=== PATIENT | female | born 1965 | race Caucasian/White ===

== ENCOUNTER 2017-10-05 21:07 | Emergency (ER) | payer SELFPAY ==
[~2017-10-05] VITALS: Ht 162.6 cm; Wt 74.4 kg
[~2017-10-05 21:07] MED LIST: CYCL10TA45 PO; HYDR-3714 PO; ONDA8TAB13 PO; OXYC1TAB25 PO
[2017-10-05 21:41] LABS: BASOPHILS % (AUTO) 1 % (0-10); EOSINOPHILS # (AUTO) 0.1 10^3/uL (0.0-0.3); EOSINOPHILS % (AUTO) 2 % (0-10); HEMATOCRIT 41 % (35-52); HEMOGLOBIN 14.3 G/DL (11.5-16.0); LYMPHOCYTES # (AUTO) 2.6 X 10^3 (1.0-4.0); LYMPHOCYTES % (AUTO) 34 % (12-44); MEAN CORPUSCULAR HEMOGLOBIN 32 PG (25-34); MEAN CORPUSCULAR HGB CONC 35 G/DL (32-36); MEAN CORPUSCULAR VOLUME 90 FL (80-99); MEAN PLATELET VOLUME 9.7 FL (7.4-10.4); MONOCYTES # (AUTO) 0.4 X 10^3 (0.0-1.0); MONOCYTES % (AUTO) 6 % (0-12); NEUTROPHILS # (AUTO) 4.4 X 10^3 (1.8-7.8); NEUTROPHILS % (AUTO) 59 % (42-75); PLATELET COUNT 288 10^3/uL (130-400); WHITE BLOOD COUNT 7.6 10^3/uL (4.3-11.0)
[2017-10-05] MEDS ORDERED: ASPIRIN 81 MG CHEW (CHILDREN'S ASA) PO ONE (21:45)
[2017-10-05 21:55] LABS: INR 0.9 (0.8-1.4); PROTHROMBIN TIME PATIENT 12.5 SEC (12.2-14.7)
[2017-10-05 21:56] LABS: ALANINE AMINOTRANSFERASE 15 U/L (0-55); ALBUMIN 4.1 GM/DL (3.2-4.5); ALKALINE PHOSPHATASE 112 U/L (40-136); BILIRUBIN,TOTAL 0.4 MG/DL (0.1-1.0); BUN/CREATININE RATIO 11; CALCIUM 9.7 MG/DL (8.5-10.1); CARBON DIOXIDE 21 MMOL/L (21-32); CHLORIDE 108 MMOL/L (98-107); CREATININE SERUM 0.72 MG/DL (0.60-1.30); GFR ESTIMATED > 60; GLUCOSE 118 MG/DL (70-105); MAGNESIUM 2.4 MG/DL (1.8-2.4); POTASSIUM 3.6 MMOL/L (3.6-5.0); SODIUM 141 MMOL/L (135-145); TOTAL PROTEIN 7.2 GM/DL (6.4-8.2)
--- NOTE | 2017-10-05 22:01 | Diagnostic Imaging Report ---
PA and lateral chest are compared to prior study from August 18, 2013. INDICATION: Shortness of breath. FINDINGS: There is flattening of the diaphragms compatible with air trapping and probable underlying COPD. There is no new infiltrate or effusion demonstrated. There is no pneumothorax. Heart size appears appropriate without evidence of failure. There is no acute or suspicious osseous abnormality. IMPRESSION: 1. Pulmonary hyperinflation suggests air trapping and underlying features of COPD. No new acute superimposed cardiopulmonary process evident. Dictated by: Dictated on workstation # [id number]
[2017-10-05 22:05] LABS: MYOGLOBIN SERUM 14.5 NG/ML (10.0-92.0)
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
[2017-10-05] MEDS ORDERED: RT-ALBUTEROL/IPRATROPIUM 3 ML (DUONEB) VIAL INH ONE (22:15)
[2017-10-05 22:17] LABS: FREE T4 (FREE THYROXINE) 0.89 NG/DL (0.70-1.48)
[2017-10-05] MEDS ORDERED: FLUT9.9S NSEACH (22:52)
[2017-10-05] MEDS ORDERED: AZIT250T12 PO (22:52)
[2017-10-05] MEDS ORDERED: RT-ALBUINH IH (22:52)
[2017-10-05 22:59] VITALS: BP 132/69
== END 2017-10-05 22:59 | disposition home or self-care (01) ==
LOC: EDUNIT# 21:07 → ER 21:10
DX: J44.1 Chronic obstructive pulmonary disease with (acute) exacerbation (principal); J32.8 Other chronic sinusitis; F17.210 Nicotine dependence, cigarettes, uncomplicated; Z79.51 Long term (current) use of inhaled steroids; Z87.81 Personal history of (healed) traumatic fracture; Z87.828 Personal history of other (healed) physical injury and trauma; Z98.890 Other specified postprocedural states; Z88.0 Allergy status to penicillin
CPT/HCPCS: 36415; 71046; 80053; 83735; 83874; 84439; 84443; 84484; 85025; 85610; 85730; 93005; 93041; 94640

== ENCOUNTER 2018-07-29 13:06 | Emergency (ER) | payer MEDICARE ==
[~2018-07-29] VITALS: Ht 162.6 cm; Wt 72.6 kg
[~2018-07-29 13:06] MED LIST changes: +AZIT250T12 PO; +FLUT9.9S NSEACH; +RT-ALBUINH IH
[2018-07-29] MEDS ORDERED: KETOROLAC 30 MG/ML VIAL IVP STA (14:12)
[2018-07-29 14:22] LABS: BILIRUBIN,URINE NEGATIVE (NEGATIVE); CLARITY,URINE SLIGHTLY CLOUDY; COLOR,URINE YELLOW; GLUCOSE, URINE (UA) NEGATIVE (NEGATIVE); KETONES,URINE NEGATIVE (NEGATIVE); LEUKOCYTE ESTERASE ,URINE NEGATIVE (NEGATIVE); NITRITE,URINE NEGATIVE (NEGATIVE); PH,URINE 7 (5-9); PROTEIN,URINE NEGATIVE (NEGATIVE); UROBILINOGEN,URINE NORMAL (NORMAL)
[2018-07-29 14:37] LABS: BASOPHILS % (AUTO) 1 % (0-10); EOSINOPHILS # (AUTO) 0.4 10^3/uL (0.0-0.3); EOSINOPHILS % (AUTO) 6 % (0-10); HEMATOCRIT 45 % (35-52); LYMPHOCYTES # (AUTO) 1.9 X 10^3 (1.0-4.0); LYMPHOCYTES % (AUTO) 28 % (12-44); MEAN CORPUSCULAR HEMOGLOBIN 32 PG (25-34); MEAN CORPUSCULAR HGB CONC 36 G/DL (32-36); MEAN CORPUSCULAR VOLUME 90 FL (80-99); MEAN PLATELET VOLUME 11.9 FL (7.4-10.4); MONOCYTES # (AUTO) 0.4 X 10^3 (0.0-1.0); MONOCYTES % (AUTO) 6 % (0-12); NEUTROPHILS # (AUTO) 4.1 X 10^3 (1.8-7.8); NEUTROPHILS % (AUTO) 60 % (42-75); PLATELET COUNT 235 10^3/uL (130-400); RED CELL DISTRIBUTION WIDTH 14.9 % (10.0-14.5); WHITE BLOOD COUNT 6.9 10^3/uL (4.3-11.0)
[2018-07-29 14:42] LABS: BACTERIA,URINE NEGATIVE /HPF; SQUAMOUS EPITHELIAL CELL,UR 0-2 /HPF
[2018-07-29 14:43] LABS: AMPHETAMINE SCREEN, URINE NEGATIVE (NEGATIVE); BARBITURATE SCREEN URINE NEGATIVE (NEGATIVE); BENZODIAZEPINES SCREEN URINE NEGATIVE (NEGATIVE); CANNABINOID SCREEN, URINE NEGATIVE (NEGATIVE); COCAINE SCREEN URINE NEGATIVE (NEGATIVE); METHADONE STAT NEGATIVE (NEGATIVE); METHAMPHETAMINE SCREEN URINE S NEGATIVE (NEGATIVE); OPIATE SCREEN URINE NEGATIVE (NEGATIVE); OXYCODONE STAT NEGATIVE (NEGATIVE); PROPOXYPHENE STAT NEGATIVE (NEGATIVE); TRICYCLIC ANTIDEPRESSANTS SCRE NEGATIVE (NEGATIVE)
[2018-07-29] MEDS ORDERED: LEVOTHYROXINE 88 MCG (14:46)
[2018-07-29] MEDS ORDERED: GABAPENTIN CAP 300MG (14:46)
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
[2018-07-29] MEDS ORDERED: [UNRECOGNIZED DRUG - CODE] (14:51)
[2018-07-29 15:13] LABS: ALANINE AMINOTRANSFERASE 13 U/L (0-55); ALBUMIN 4.1 GM/DL (3.2-4.5); ALKALINE PHOSPHATASE 98 U/L (40-136); BILIRUBIN,TOTAL 0.4 MG/DL (0.1-1.0); BUN/CREATININE RATIO 11; CALCIUM 9.7 MG/DL (8.5-10.1); CARBON DIOXIDE 25 MMOL/L (21-32); CHLORIDE 106 MMOL/L (98-107); GFR ESTIMATED > 60; GLUCOSE 76 MG/DL (70-105); POTASSIUM 4.1 MMOL/L (3.6-5.0); SODIUM 139 MMOL/L (135-145); TOTAL PROTEIN 7.2 GM/DL (6.4-8.2)
[2018-07-29 15:33] LABS: FREE T4 (FREE THYROXINE) 0.66 NG/DL (0.70-1.48)
[2018-07-29] MEDS ORDERED: LEVOTHYROXINE 88 MCG (LEVOTHORID) TAB PO ONE (15:45)
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
[2018-07-29] MEDS ORDERED: CYCL10TA9 PO (16:53)
[2018-07-29 17:02] VITALS: BP 102/74
== END 2018-07-29 17:06 | disposition home or self-care (01) ==
LOC: EDUNIT# 13:06 → ER 13:08
DX: M54.6 Pain in thoracic spine (principal); E03.9 Hypothyroidism, unspecified; F17.210 Nicotine dependence, cigarettes, uncomplicated; Z98.890 Other specified postprocedural states; Z88.0 Allergy status to penicillin; Z88.6 Allergy status to analgesic agent
CPT/HCPCS: 36415; 70450; 70486; 72125; 72128; 72131; 80053; 80306; 81000; 84439; 84443; 85025; 86141

== ENCOUNTER 2018-08-27 17:50 | Emergency (ER) | payer MEDICARE ==
[~2018-08-27] VITALS: Ht 160 cm; Wt 72.6 kg
[~2018-08-27 17:50] MED LIST changes: +CYCL10TA9 PO; +GABAPENTIN CAP 300MG; +LEVOTHYROXINE 88 MCG; +[UNRECOGNIZED DRUG - CODE]
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
[2018-08-27] MEDS ORDERED: HYDROcodone/APAP 5 MG/325 MG (LORTAB) TAB PO ONE (18:15)
--- NOTE | 2018-08-27 18:21 | Diagnostic Imaging Report ---
INDICATION: Left wrist pain. EXAMINATION: AP, oblique and lateral views of the left wrist were obtained. FINDINGS: No fracture or acute bony abnormality is seen. There is chronic cystic change in the lunate. IMPRESSION: No acute fracture or acute bony abnormality. Chronic cystic change of the lunate is noted. Dictated by: Dictated on workstation # [id number]
[2018-08-27 18:43] VITALS: BP 118/69
== END 2018-08-27 18:43 | disposition home or self-care (01) ==
LOC: EDUNIT# 17:50 → ER 17:51
DX: S60.212A Contusion of left wrist, initial encounter (principal); E03.9 Hypothyroidism, unspecified; F17.210 Nicotine dependence, cigarettes, uncomplicated; Z88.0 Allergy status to penicillin; Z88.6 Allergy status to analgesic agent; Z98.890 Other specified postprocedural states; Z98.51 Tubal ligation status; W23.0XXA Caught, crushed, jammed, or pinched between moving objects, initial encounter
CPT/HCPCS: 73110

== ENCOUNTER → 2021-08-27 | Outpatient (CLI) | payer MEDICARE, MEDICAID ==
[~2021-08-27] MED LIST changes: +CYCL10TA25 PO; -CYCL10TA9 PO
--- NOTE | 2021-08-27 17:48 | Diagnostic Imaging Report ---
INDICATION: Paget's disease. Bone pain. FINDINGS: 25 mCi tech 99 MDP was given IV. 2 1/2 hour delayed whole body imaging. FINDINGS: There is intense uptake along the right calvarium in the frontal parietal region extending into the sphenoid. This does correlate with the CT findings from 08/17/2013. No other abnormal areas of uptake are seen with the exception of minimal uptake along the patellofemoral joints. IMPRESSION: 1. Intense uptake along the right frontal temporal parietal region and sphenoid ridge consistent with pagetoid changes noted on previous CT scan. 2. Mild uptake along the patellofemoral joints consistent with degenerative change. Dictated by: Dictated on workstation # [id number]
== END ==
LOC: CARD 11:31
PROVIDERS: ATTEND Pediatrics
DX: M88.9 Osteitis deformans of unspecified bone (principal)
CPT/HCPCS: 78306; A9503

== ENCOUNTER → 2022-01-01 | Outpatient (CLI) | payer OTHER, MEDICAID ==
--- NOTE | 2022-01-01 16:47 | Diagnostic Imaging Report ---
INDICATION: 56-year-old asymptomatic postmenopausal female. Hyperparathyroidism COMPARISON: None available FINDINGS: AP Spine L1-L4: [BMD (g/cm2): 0.928] [T-Score: -2.3] [Z-Score: -2.0] [BMD Previous: NA] [BMD % Change: NA] LT Hip Neck: [BMD (g/cm2): 0.835] [T-Score: -1.5] [Z-Score: -0.8] LT Hip Total: [BMD (g/cm2):0.876] [T-Score:-1.0] [Z-Score: -0.7] [BMD Previous: NA] [BMD % Change: NA] RT Hip Neck: [BMD (g/cm2):0.866] [T-Score:-1.2] [Z-Score:-0.5] RT Hip Total: [BMD (g/cm2):0.897] [T-score:-0.9] [Z-Score:-0.6] [BMD Previous:NA] [BMD % Change:NA] *Indicates significant change from prior examination based on 95% confidence level. World Health Organization criteria for BMD interpretation classify patients as Normal (T-score at or above -1.0), Osteopenic (T-score between -1.0 and -2.5) or Osteoporotic (T-score at or below -2.5). LIMITATIONS AND MODIFICATION: None. FRACTURE RISK (FRAX SCORE): The ten year probability of (%): Major Osteoporotic Fracture: [11.6] Hip Fracture: [1.6] IMPRESSION: 1. Osteopenia (Low bone mass). 2. Baseline examination. 3. See below National Osteoporosis Foundation guidelines on when to potentially initiate pharmacologic therapy. Based on the National Osteoporosis Foundation Guidelines, pharmacologic treatment should be initiated in any of the following, unless clinical conditions suggest otherwise: * Any patient with prior fragility fracture of the hip or vertebrae. A spine fracture indicates 5X risk for subsequent spine fracture and 2X risk for subsequent hip fracture. * Osteoporosis (T-score <-2.5). * Postmenopausal women and men age 50 and older with low bone mass/osteopenia (T-score between -1.0 and -2.5) by DXA and 10-year major osteoporotic fracture greater than 20% or a 10-year probability of hip fracture greater than 3%. These fracture risks are supplied above in the FRAX score, if applicable. * Clinician judgement and/or patient preferences may indicate treatment for people with 10-year fracture probabilities above or below these levels. Dictated by: Dictated on workstation # [id number]
== END ==
LOC: RAD 12:30
PROVIDERS: ATTEND Internal Medicine Endocrinology, Diabetes & Metabolism
DX: M85.80 Other specified disorders of bone density and structure, unspecified site (principal); E21.3 Hyperparathyroidism, unspecified; Z78.0 Asymptomatic menopausal state
CPT/HCPCS: 77080